=== PATIENT | male | born 1980 | race Caucasian/White ===

== ENCOUNTER 2017-09-22 15:58 | Emergency (ER) | payer SELFPAY ==
[2017-09-22 16:08] VITALS: BP 116/77
--- NOTE | 2017-09-22 16:36 | ER Document Report ---
HPI - HPI Pain Level: 3 Context: Patient is a 37-year-old male presents emergency room with a chief complaint of right shoulder pain. Patient states that on Saturday he felt something pop in his shoulder while he was picking up his son. States he has been taking Motrin at home for toothache over the past 2 weeks withHas not significantly improved his shoulder pain. He denies any decreased range of motion the shoulder but admits to pain the right side of his neck. Denies any associated numbness, tingling or weakness. - MUSCULOSKELETAL Musculoskeletal: REPORTS: Extremity pain Past Medical History - Social History Smoking Status: Current Every Day Smoker Chew tobacco use (# tins/day): No Frequency of alcohol use: None Drug Abuse: None Family History: Reviewed & Not Pertinent Patient has suicidal ideation: No Patient has homicidal ideation: No Renal/ Medical History: Denies: Hx Peritoneal Dialysis - Immunizations Hx Diphtheria, Pertussis, Tetanus Vaccination: Yes Vertical Provider Document - CONSTITUTIONAL Agree With Documented VS: Yes Notes: PHYSICAL EXAM GENERAL: Alert, interacts well. EXTREMITIES: Moves all 4 extremities spontaneously. Tenderness and pain reproducible palpation along the right trapezius. No evidence of deformities no edema, radial and dorsalis pedis pulses 2/4 bilaterally. No cyanosis. NEUROLOGICAL: Alert and oriented x4. Motor, sensory and reflex exams are intact bilateral upper extremities. PSYCH: Normal affect, normal mood. SKIN: Warm, dry, normal turgor. No rashes or lesions noted. - INFECTION CONTROL TRAVEL OUTSIDE OF THE [place] IN LAST 30 DAYS: No Course - Re-evaluation Re-evalutation: 09/22/17 17:47 Patient is a 37-year-old male who is hemodynamic stable, no distress and afebrile. Presentation is consistent with muscle strain no evidence of a septic joint, gout flare, dislocation, or fracture on exam and imaging. Vitals wnl. At this time, I do not see an indication for labs or further imaging. Will discharge with conservative measures, return precautions, and follow-up recommendations. - Vital Signs Vital signs: Temp Pulse Resp BP Pulse Ox 98.1 F 79 16 116/77 97 09/22/17 16:06 09/22/17 16:06 09/22/17 16:06 09/22/17 16:06 09/22/17 16:06 - Diagnostic Test Radiology reviewed: Image reviewed, Reports reviewed Discharge - Discharge Clinical Impression: Shoulder injury Condition: Good Disposition: HOME, SELF-CARE Instructions: Muscle Strain ([facility]) Prescriptions: Cyclobenzaprine HCl [Flexeril 10 mg Tablet] 10 mg PO TIDP PRN #15 tab PRN Reason: Ibuprofen [Motrin 800 mg Tablet] 800 mg PO Q8H PRN #30 tab PRN Reason: Forms: Special Work Note, Return to Work Referrals: LOLIS RABAGO DO [ACTIVE STAFF] - Follow up as needed
--- NOTE | 2017-09-22 17:23 | RADIOLOGY REPORT (SQ) ---
EXAM DESCRIPTION: SHOULDER RIGHT 2 OR MORE VIEWS COMPLETED DATE/TIME: 09/22/2017 5:15 pm REASON FOR STUDY: right posterior shoulder pain COMPARISON: None. NUMBER OF VIEWS: Three views. TECHNIQUE: Internal rotation, external rotation, and Y view images acquired of the right shoulder. LIMITATIONS: None. FINDINGS: MINERALIZATION: Normal. BONES: No acute fracture or dislocation. No worrisome bone lesions. JOINTS: No dislocation. VISUALIZED LUNGS AND RIBS: No pneumothorax. No rib fracture. SOFT TISSUES: No radiopaque foreign body. OTHER: No other significant finding. IMPRESSION: NEGATIVE STUDY OF THE RIGHT SHOULDER. NO RADIOGRAPHIC EVIDENCE OF ACUTE INJURY. TECHNICAL DOCUMENTATION: JOB ID: [id number] [employer]- All Rights Reserved Reading location - IP/workstation name: [email or web address]
--- NOTE | 2017-09-22 17:24 | RADIOLOGY REPORT (SQ) ---
EXAM DESCRIPTION: CERV SP 4 OR 5 VIEWS COMPLETED DATE/TIME: 09/22/2017 5:15 pm REASON FOR STUDY: right sided neck pain COMPARISON: None. NUMBER OF VIEWS: Five views. TECHNIQUE: AP, lateral, obliques and odontoid radiographic images acquired of the cervical spine. LIMITATIONS: None. FINDINGS: MINERALIZATION: Normal. ALIGNMENT: Anatomic. VERTEBRAE: Vertebral bodies of normal height. DISCS: No significant osteophytes or sclerosis. Disc height maintained. FORAMINA: No osteophytes or foraminal narrowing. LATERAL AND POSTERIOR ELEMENTS: Facets, lateral masses and spinous processes without significant find ings. HARDWARE: None in the spine. SOFT TISSUES: No masses or calcifications. Lung apices clear. OTHER: No other significant finding. IMPRESSION: NO SIGNIFICANT RADIOGRAPHIC FINDING IN THE CERVICAL SPINE. TECHNICAL DOCUMENTATION: JOB ID: [id number] [employer] All Rights Reserved Reading location - IP/workstation name: [email or web address]
[2017-09-22] MEDS ORDERED: KETOROLAC TROMETHAMINE INJ/PF 30 MG/1 ML SDV IM ONE (17:46)
== END 2017-09-22 18:05 | disposition home or self-care (01) ==
LOC: ER 15:58
DX: S49.91XA Unspecified injury of right shoulder and upper arm, initial encounter (principal); X50.0XXA Overexertion from strenuous movement or load, initial encounter; F17.200 Nicotine dependence, unspecified, uncomplicated
CPT/HCPCS: 99283; 96372; 72050; 73030; J1885

== ENCOUNTER 2018-08-20 10:10 | Emergency (ER) | payer SELFPAY ==
[2018-08-20] MEDS ORDERED: OXYCODONE-ACETAMINOPHEN 5-325 MG TABLET PO ONE (11:10)
--- NOTE | 2018-08-20 11:51 | RADIOLOGY REPORT (SQ) ---
EXAM DESCRIPTION: SHOULDER RIGHT 2 OR MORE VIEWS COMPLETED DATE/TIME: 08/20/2018 11:38 am REASON FOR STUDY: right shoulder pain, limited rom, numbness in arm COMPARISON: 09/22/2017 NUMBER OF VIEWS: Three views. TECHNIQUE: Internal rotation, external rotation, and Y view images acquired of the right shoulder. LIMITATIONS: None. FINDINGS: MINERALIZATION: Normal. BONES: No acute fracture or dislocation. No worrisome bone lesions. JOINTS: No dislocation. VISUALIZED LUNGS AND RIBS: No pneumothorax. No rib fracture. SOFT TISSUES: No radiopaque foreign body. OTHER: No other significant finding. IMPRESSION: NEGATIVE STUDY OF THE RIGHT SHOULDER. NO RADIOGRAPHIC EVIDENCE OF ACUTE INJURY. TECHNICAL DOCUMENTATION: JOB ID: [id number] [employer]- All Rights Reserved Reading location - IP/workstation name: [email or web address]
--- NOTE | 2018-08-20 12:24 | ER Document Report ---
HPI - HPI Time Seen by Provider: 08/20/18 10:57 Pain Level: 4 Notes: Patient is a 38-year-old male presenting with chief complaint of right shoulder pain that started approximately 4 days ago. He also has some tingling in his right arm that has been going on for 3 weeks. Patient states his symptoms started after he was moving a heavy object down a flight of stairs and lost his footing bumping his right shoulder into a wall. - CONSTITUTIONAL Constitutional: DENIES: Fever, Chills - MUSCULOSKELETAL Musculoskeletal: REPORTS: Extremity pain - right shoulder and arm Past Medical History - General Information source: Patient - Social History Smoking Status: Current Every Day Smoker Frequency of alcohol use: None Drug Abuse: None Family History: Reviewed & Not Pertinent Patient has suicidal ideation: No Patient has homicidal ideation: No - Medical History Medical History: Negative Renal/ Medical History: Denies: Hx Peritoneal Dialysis Surgical Hx: Negative - Immunizations Hx Diphtheria, Pertussis, Tetanus Vaccination: Yes Vertical Provider Document - CONSTITUTIONAL Notes: PHYSICAL EXAMINATION: GENERAL: Well-appearing, well-nourished and in no acute distress. HEAD: Atraumatic, normocephalic. EYES: Pupils equal round extraocular movements intact, conjunctiva are normal. ENT: Nares patent NECK: Normal range of motion LUNGS: No respiratory distress Musculoskeletal: Normal range of motion, tenderness to palpation to anterior right shoulder, no obvious deformity noted. Strong radial pulse, cap refill less than 3 seconds. Good strength bilaterally to upper extremities. NEUROLOGICAL: Normal speech, normal gait. PSYCH: Normal mood, normal affect. SKIN: Warm, Dry, normal turgor, no rashes or lesions noted. - INFECTION CONTROL TRAVEL OUTSIDE OF THE [place] IN LAST 30 DAYS: No Course - Re-evaluation Re-evalutation: Shoulder x-ray is negative for any fracture or dislocation. Likely musculoskeletal in nature however cannot rule out ligament, tendon or rotator cuff injury. This was all discussed with the patient. Patient will try conservative measures at home and if pain persists he will follow-up with primary care or orthopedics. - Vital Signs Vital signs: Temp Pulse Resp BP Pulse Ox 97.8 F 69 22 H 117/63 96 08/20/18 10:20 08/20/18 10:20 08/20/18 10:20 08/20/18 10:20 08/20/18 10:20 Discharge - Discharge Clinical Impression: Shoulder pain Qualifiers: Chronicity: acute Laterality: right Qualified Code(s): M25.511 - Pain in right shoulder Condition: Stable Disposition: HOME, SELF-CARE Additional Instructions: Shoulder Injury You have injured your shoulder. This usually results from stretching or tearing of the tendons during trauma. Time and protection are required in order to heal properly. Many injuries are quite disabling, and should be taken seriously. Initial treatment includes cold packs and a sling to rest the shoulder. The physician has assessed the seriousness of your injury, and has outlined a treatment plan. Understand that this treatment may change, depending on how you progress. If a re-examination was recommended, it is important that you follow up as instructed. Some shoulder injuries (such as partial tear of the rotator cuff) are only suspected after you've failed to improve. Call us if there's severe pain, numbness, or loss of function. Please use the sling for comfort only, do not rely on it. I would like you to be doing shoulder exercises daily and range of motion exercises. Please take ibuprofen 600 mg every 6 hours. Please follow-up with either the [facility] or orthopedics. I suspect you need an MRI of your shoulder. Please return to the emergency department for any new or worsening symptoms. Forms: Return to Work
[2018-08-20 12:37] VITALS: BP 108/62
== END 2018-08-20 12:37 | disposition home or self-care (01) ==
LOC: ER 10:10
DX: M25.511 Pain in right shoulder (principal); R20.0 Anesthesia of skin; X50.0XXA Overexertion from strenuous movement or load, initial encounter; F17.200 Nicotine dependence, unspecified, uncomplicated
CPT/HCPCS: 99283

== ENCOUNTER 2019-02-27 10:30 | Emergency (ER) | payer SELFPAY ==
[2019-02-27] MEDS ORDERED: KETOROLAC TROMETHAMINE INJ/PF 30 MG/1 ML SDV IV ONE (10:40)
[2019-02-27] MEDS ORDERED: ONDANSETRON HCL INJ/PF 4 MG/2 ML SDV IV ONE (10:40)
--- NOTE | 2019-02-27 10:43 | ER Document Report ---
ED Medical Screen (RME) - General Chief Complaint: Flank Pain Stated Complaint: FLANK PAIN Time Seen by Provider: 02/27/19 10:38 Mode of Arrival: Ambulatory Information source: Patient Notes: 39-year-old male presents to ED for complaint of right flank pain since 5 AM this morning. He states he has not had any pain before today in this area he denies a history of kidney stones. He states he does not know of anybody in his family having kidney stones. States he still has his gallbladder. He states he smokes a half a pack a day does not drink alcohol and does smoke marijuana. She is alert and oriented holding splinting his right flank area. I have greeted and performed a rapid initial assessment of this patient. A comprehensive ED assessment and evaluation of the patient, analysis of test results and completion of medical decision making process will be conducted by an additional ED providers. TRAVEL OUTSIDE OF THE [place] IN LAST 30 DAYS: No - Related Data Allergies/Adverse Reactions: No Known Allergies Allergy (Verified 08/20/18 10:17) Past Medical History Renal/ Medical History: Denies: Hx Peritoneal Dialysis - Immunizations Hx Diphtheria, Pertussis, Tetanus Vaccination: Yes Physical Exam - Vital signs Vitals: Temp Pulse Resp BP Pulse Ox 98.7 F 52 L 28 H 173/87 H 98 02/27/19 10:37 02/27/19 10:37 02/27/19 10:37 02/27/19 10:37 02/27/19 10:37 Course - Vital Signs Vital signs: Temp Pulse Resp BP Pulse Ox 98.7 F 52 L 28 H 173/87 H 98 02/27/19 10:37 02/27/19 10:37 02/27/19 10:37 02/27/19 10:37 02/27/19 10:37
--- NOTE | 2019-02-27 11:43 | RADIOLOGY REPORT (SQ) ---
EXAM DESCRIPTION: U/S RETROPERITON (RENAL/AORTA) COMPLETED DATE/TIME: 02/27/2019 11:29 am REASON FOR STUDY: right flank pain COMPARISON: None. TECHNIQUE: Dynamic and static grayscale images acquired of the kidneys and bladder and recorded on P ACS. Additional selected color Doppler and spectral images recorded. LIMITATIONS: None. FINDINGS: RIGHT KIDNEY: Normal size, 11.1 cm. Normal echogenicity. There is a 9 mm calculus. The renal pelvis is slightly prominent. There is no true hydronephrosis LEFT KIDNEY: Normal size, 11 cm. Normal echogenicity. No solid or suspicious masses. No hydronephros is. No calcifications. BLADDER: Urinary bladder is empty. OTHER FINDINGS: No other significant finding. IMPRESSION: 9 mm intrarenal calculus in the right kidney. No true hydronephrosis, but the right kareen al pelvis is slightly prominent. Left kidney is normal. Urinary bladder is empty. TECHNICAL DOCUMENTATION: JOB ID: [id number] [employer]- All Rights Reserved Reading location - IP/workstation name: [email or web address]
[2019-02-27 11:58] LABS: ABSOLUTE LYMPHOCYTES (AUTO) 0.8 10^3/uL (0.5-4.7); ABSOLUTE MONOCYTES (AUTO) 0.5 10^3/uL (0.1-1.4); ABSOLUTE NEUT (AUTO) 13.4 10^3/uL (1.7-8.2); BASOPHILS % (AUTO) 0.3 % (0-2); EOSINOPHILS % (AUTO) 0.1 % (0-6); HEMATOCRIT 46.8 % (37.9-51.0); LYMPHOCYTES % (AUTO) 5.6 % (13-45); MEAN CORPUSCULAR HEMOGLOBIN 31.2 pg (27.0-33.4); MEAN CORPUSCULAR HGB CONC 34.1 g/dL (32.0-36.0); MEAN CORPUSCULAR VOLUME 92 fl (80-97); MONOCYTES % (AUTO) 3.3 % (3-13); PLATELET COUNT 180 10^3/uL (150-450); RED BLOOD COUNT 5.12 10^6/uL (4.35-5.55); RED CELL DISTRIBUTION WIDTH 13.5 % (11.5-14.0); SEGMENTED NEUTROPHILS % (AUTO) 90.7 % (42-78); TOTAL CELLS COUNTED % (AUTO) 100 %; WHITE BLOOD COUNT 14.7 10^3/uL (4.0-10.5)
[2019-02-27 12:23] LABS: ALBUMIN 4.9 g/dL (3.5-5.0); ALKALINE PHOSPHATASE 58 U/L (38-126); ANION GAP 10 (5-19); ASPARTATE AMINO TRANSFERASE 22 U/L (17-59); BILIRUBIN,DIRECT 0.2 mg/dL (0.0-0.4); BILIRUBIN,TOTAL 0.4 mg/dL (0.2-1.3); BLOOD UREA NITROGEN 21 mg/dL (7-20); CARBON DIOXIDE 26 mmol/L (22-30); CHLORIDE 106 mmol/L (98-107); GLUCOSE 120 mg/dL (75-110); POTASSIUM 4.5 mmol/L (3.6-5.0); TOTAL PROTEIN 7.7 g/dL (6.3-8.2)
[2019-02-27] MEDS ORDERED: MORPHINE SULFATE 10 MG/ML INJ IV ONE (13:08)
--- NOTE | 2019-02-27 13:11 | ER Document Report ---
ED GI/ - General Chief Complaint: Flank Pain Stated Complaint: FLANK PAIN Time Seen by Provider: 02/27/19 10:38 Primary Care Provider: NED SERRANO MD [ABENA FLORES] - Follow up in 1 week Mode of Arrival: Ambulatory TRAVEL OUTSIDE OF THE [place] IN LAST 30 DAYS: No - HPI Notes: 02/27/19 39-year-old male to the emergency department with complaints of right flank pain that radiates down into his right lower abdomen that began this morning at 5 AM. He states that he awoke suddenly with pain and has had nausea and vomiting as well. He states that when he got Toradol through triage that it helped initially but now his pain is coming back. He denies any diarrhea. He denies any testicular pain. Denies any history of kidney stones. He has never had surgery on his belly. He denies any fevers or chills. - Related Data Allergies/Adverse Reactions: No Known Allergies Allergy (Verified 02/27/19 10:57) Past Medical History - General Information source: Patient - Social History Smoking Status: Current Every Day Smoker Chew tobacco use (# tins/day): No Frequency of alcohol use: Occasional Drug Abuse: None Family History: Reviewed & Not Pertinent Patient has suicidal ideation: No Patient has homicidal ideation: No Renal/ Medical History: Denies: Hx Peritoneal Dialysis - Immunizations Hx Diphtheria, Pertussis, Tetanus Vaccination: Yes Review of Systems - Review of Systems Constitutional: denies: Chills, Fever EENT: No symptoms reported Cardiovascular: denies: Chest pain, Palpitations, Dyspnea, Syncope, Dizziness, Lightheaded Respiratory: denies: Cough, Short of breath Gastrointestinal: Abdominal pain, Nausea, Vomiting. denies: Diarrhea Genitourinary: Flank pain. denies: Dysuria, Discharge, Frequency, Hematuria Male Genitourinary: denies: Testicular pain Musculoskeletal: No symptoms reported Skin: No symptoms reported Hematologic/Lymphatic: No symptoms reported Neurological/Psychological: No symptoms reported -: Yes All other systems reviewed and negative Physical Exam - Vital signs Vitals: Temp Pulse Resp BP Pulse Ox 98.7 F 52 L 28 H 173/87 H 98 02/27/19 10:37 02/27/19 10:37 02/27/19 10:37 02/27/19 10:37 02/27/19 10:37 Interpretation: Hypertensive - General General appearance: Appears well, Alert In distress: Moderate Notes: + moderate pain distress - HEENT Head: Normocephalic, Atraumatic Eyes: Normal Pupils: PERRL - Respiratory Respiratory status: No respiratory distress Chest status: Nontender Breath sounds: Normal. No: Nonproductive cough, Productive cough, Rales, Rhonchi, Stridor, Wheezing Chest palpation: Normal - Cardiovascular Rhythm: Regular Heart sounds: Normal auscultation Murmur: No - Abdominal Inspection: Normal Distension: No distension Bowel sounds: Normal Tenderness: Tender - There is tenderness to palpation over the right upper quadrant and right mid abdomen. There is also exquisite tenderness over the right CVA. No tenderness to palpation to the epigastrium, left upper quadrant, left flank, left CVA, left lower quadrant. Organomegaly: No organomegaly - Back Back: Normal, CVA tenderness - + right CVA tenderness - Neurological Neuro grossly intact: Yes Cognition: Normal Orientation: AAOx4 Sabina Coma Scale Eye Opening: Spontaneous Woodruff Coma Scale Verbal: Oriented Woodruff Coma Scale Motor: Obeys Commands Woodruff Coma Scale Total: 15 Speech: Normal Motor strength normal: LUE, RUE, LLE, RLE Sensory: Normal - Psychological Associated symptoms: Normal affect, Normal mood - Skin Skin Temperature: Warm Skin Moisture: Dry Skin Color: Normal Course - Re-evaluation Re-evalutation: 02/27/19 Renal Ultrasound 02/27/19 10:41 IMPRESSION: 9 mm intrarenal calculus in the right kidney. No true hydronephrosis, but the right renal pelvis is slightly prominent. Left kidney is normal. Urinary bladder is empty. 02/27/19 Progress: Patient is improved significantly after morphine administration. He no longer has any pain. He would like to be discharged home. We will send home with Flomax, Naprosyn,, Percocet, Zofran. Also have him follow-up with urology. Have encouraged him to return if any worsening symptoms such as intractable pain, intractable vomiting, fevers. Noted labs. Urinalysis is reassuring with noted hematuria. Suspect white blood count is inflammatory in nature. Vital signs have normalized since pain control. Patient and his family has bedside agree with the plan Impression: Right flank pain, renal colic, right renal stones. Suspect the patient passed a smaller stone this morning and that caused his pain. We will follow the treatment plan as outlined above. - Vital Signs Vital signs: Temp Pulse Resp BP Pulse Ox 98.3 F 49 L 16 102/54 L 97 02/27/19 15:21 02/27/19 15:21 02/27/19 15:21 02/27/19 15:21 02/27/19 15:21 - Laboratory Result Diagrams: 02/27/19 11:35 02/27/19 11:35 Laboratory results interpreted by me: 02/27/19 02/27/19 02/27/19 11:35 11:35 13:05 WBC 14.7 H Lymph % (Auto) 5.6 L Absolute Neuts (auto) 13.4 H Seg Neutrophils % 90.7 H BUN 21 H Glucose 120 H Urine Protein 30 H Urine Blood LARGE H Urine Urobilinogen 2.0 H - Diagnostic Test Radiology reviewed: Image reviewed, Reports reviewed Discharge - Discharge Clinical Impression: Right flank pain, Renal stone, Renal colic on right side Condition: Stable Disposition: HOME, SELF-CARE Instructions: Kidney Stone ([facility]) Additional Instructions: PUSH FLUIDS. TAKE MEDICINE PRESCRIBED. RETURN IF WORSE. FOLLOW UP WITH UROLOGIST. APPLY WARM COMPRESSES. RETURN IF INTRACTABLE PAIN, INTRACTABLE VOMITING, FEVERS. Prescriptions: Ondansetron [Zofran Odt 4 mg Tablet] 1 - 2 tab PO Q4HP PRN #10 tab.rapdis PRN Reason: Tamsulosin HCl [Flomax] 0.4 mg PO DAILY #7 cap.er.24h Naproxen [Naprosyn 250 mg Tablet] 250 mg PO DAILY PRN #30 tablet PRN Reason: Oxycodone HCl/Acetaminophen [Percocet 5-325 mg Tablet] 1 tab PO Q6H PRN #10 tab PRN Reason: Forms: Return to Work Referrals: NED SERRANO MD [ABENA FLORES] - Follow up in 1 week
[2019-02-27] MEDS ORDERED: NORMAL SALINE 1000 ML 1,000 ML IV ONE (13:31)
[2019-02-27 13:35] LABS: APPEARANCE,URINE CLOUDY; BILIRUBIN,URINE NEGATIVE (NEGATIVE); CALCIUM OXALATE CRYSTALS,URINE FEW /HPF; GLUCOSE, URINE NEGATIVE (NEGATIVE); KETONES,URINE NEGATIVE (NEGATIVE); PROTEIN,URINE 30 mg/dL (NEGATIVE); URINE SPECIFIC GRAVITY 1.033
[2019-02-27 13:36] LABS: COLOR,URINE YELLOW
[2019-02-27 15:23] VITALS: BP 102/54
== END 2019-02-27 16:16 | disposition home or self-care (01) ==
LOC: ER 10:30
DX: N20.0 Calculus of kidney (principal); N23 Unspecified renal colic; R11.2 Nausea with vomiting, unspecified; Z79.899 Other long term (current) drug therapy; F17.200 Nicotine dependence, unspecified, uncomplicated
CPT/HCPCS: 99284; 96361; 96374; 96375; 36415; 83690; 85025; 80053; 81001; 76770; J1885; J2270; J2405; J7030